=== PATIENT | female | born 1940 | race Caucasian/White ===

== ENCOUNTER 2016-10-27 11:20 | Day surgery (SDC) | payer MEDICARE, OTHER ==
--- NOTE | ~2016-10-27 | EGD ---
EGD REPORT [facility] [address] [id number] NAME: KATARZYNA MARSHALL : [birth year] [place] [facility] [place] [id number] AGE: 75 ADM/REG DATE : 10/27/16 MR#: [id number] REPORT SERV DATE: 10/27/16 DICTATED BY: HORACIO POTTER DATE: 10/27/16 REPORT STATUS : Draft TRANSCRIBED BY: [facility] DATE: 10/27/16 Endoscopy Center Patient Name: Katarzyna Marshall Date of : 1940 Attending MD: HORACIO POTTER MD Procedure Date No Time: 10/27/2016 Procedure: Colonoscopy Indications: Screening for colorectal malignant neoplasm, This is the patient's first colonoscopy, FH of Ovarian Cancer - 1st degree relative Referring MD: CASSIE BILLINGSLEY Medicines: Propofol per Anesthesia Complications: No immediate complications. Estimated blood loss: None. Procedure: Pre-Anesthesia Assessment: - After reviewing the risks and benefits, the patient was deemed in satisfactory condition to undergo the procedure. - Prior to the procedure, a History and Physical was performed, and patient medications and allergies were reviewed. The patient's tolerance of previous anesthesia was also reviewed. The risks and benefits of the procedure and the sedation options and risks were discussed with the patient. All questions were answered, and informed consent was obtained. Prior Anticoagulants: The patient has taken no previous anticoagulant or antiplatelet agents. ASA Grade Assessment: I - A normal, healthy patient. After reviewing the risks and benefits, the patient was deemed in satisfactory condition to undergo the procedure. After I obtained informed consent, the scope was passed under direct vision. Throughout the procedure, the patient's blood pressure, pulse, and oxygen saturations were monitored continuously. The CF [id number] was introduced through the anus and advanced to the cecum, identified by appendiceal orifice and ileocecal valve. The colonoscopy was somewhat difficult due to a tortuous colon. Successful completion of the procedure was aided by straightening and shortening the scope to obtain bowel loop reduction. The ileocecal valve and appendiceal orifice were photographed. The patient tolerated the procedure well. The quality of the bowel preparation was excellent. The bowel preparation used was split dose polyethylene glycol (PEG). Scope withdrawal time was greater than 13 minutes. EGD REPORT [place] [id number] [facility] [place]. [address] NAME: KATARZYNA MARSHALL : [birth year] [place] [facility] [place] [id number] AGE: 75 ADM/REG DATE : 10/27/16 MR#: [id number] REPORT SERV DATE: 10/27/16 DICTATED BY: HORACIO POTTER DATE: 10/27/16 REPORT STATUS : Draft TRANSCRIBED BY: [facility] DATE: 10/27/16 Findings: The perianal and digital rectal examinations were normal. Pertinent negatives include normal sphincter tone. Non-bleeding internal hemorrhoids were found during retroflexion and were small and Grade I (internal hemorrhoids that do not prolapse). A few small-mouthed diverticula were found in the sigmoid colon. A sessile polyp was found in the sigmoid colon. The polyp was 6 mm in size. The polyp was removed with a cold snare. Resection and retrieval were complete. Estimated blood loss: none. The exam was otherwise without abnormality. Impression: - Non-bleeding internal hemorrhoids. - One 6 mm polyp in the sigmoid colon. Resected and retrieved. - The examination was otherwise normal. Recommendation: - Discharge patient to home (ambulatory). - Return to previous diet. - Continue present medications. - Await pathology results. - Repeat colonoscopy in 5 years for surveillance. - Patient has a contact number available for emergencies. The signs and symptoms of potential delayed complications were discussed with the patient. Return to normal activities tomorrow. Written discharge instructions were provided to the patient. Procedure Code(s): --- Professional --- 36985, Colonoscopy, flexible, proximal to splenic flexure; with removal of tumor(s), polyp(s), or other lesion(s) by snare technique Diagnosis Code(s): --- Professional --- K64.0, First degree hemorrhoids D12.5, Benign neoplasm of sigmoid colon Z12.11, Encounter for screening for malignant neoplasm of colon Z80.41, Family history of malignant neoplasm of ovary CPT copyright 2013 [employer]. All rights reserved. The codes documented in this report are preliminary and upon tourism radio presenter review may be revised to meet current compliance requirements. HORACIO POTTER MD EGD REPORT [facility] [address] [id number] NAME: KATARZYNA MARSHALL : [birth year] [place] [facility] [place] [id number] AGE: 75 ADM/REG DATE : 10/27/16 MR#: [id number] REPORT SERV DATE: 10/27/16 DICTATED BY: HORACIO POTTER DATE: 10/27/16 REPORT STATUS : Draft TRANSCRIBED BY: [employer] DATE: 10/27/16 10/27/2016 12:32 PM This report has been signed electronically. Number of Addenda: 0 Note Initiated On: 10/27/2016 11:42 AM Scope Withdrawal Time 0 hours 14 minutes 2 seconds [id number] [id number]
[~2016-10-27 11:20] MED LIST: ASABAYER PO
== END 2016-10-27 23:59 | disposition home or self-care (01) ==
LOC: DMU 11:20
PROVIDERS: Internal Medicine Gastroenterology
PROC: 0DBN8ZZ Excision of Sigmoid Colon, Via Natural or Artificial Opening Endoscopic (ICD-10-PCS; principal; 2016-10-27 12:45)
DX: Z12.11 Encounter for screening for malignant neoplasm of colon (principal); D12.5 Benign neoplasm of sigmoid colon; M25.561 Pain in right knee; Z90.710 Acquired absence of both cervix and uterus; Z98.41 Cataract extraction status, right eye; Z98.42 Cataract extraction status, left eye; Z96.1 Presence of intraocular lens; Z97.2 Presence of dental prosthetic device (complete) (partial); Z87.891 Personal history of nicotine dependence; Z88.1 Allergy status to other antibiotic agents; Z79.82 Long term (current) use of aspirin
CPT/HCPCS: 88305